=== PATIENT | male | born 1975 | race Caucasian/White ===

== ENCOUNTER 2016-09-15 17:41 | Emergency (ER) | payer BC, OTHER ==
[2016-09-15] MEDS ORDERED: MORPHINE SULFATE 4 MG/ML SYRINGE IVP STA (17:51)
--- NOTE | 2016-09-15 17:54 | ED ---
Lower Extremity Injury HPI - General Stated Complaint: [facility] fall Time Seen by Provider: 09/15/16 17:45 Source: patient, EMS, RN notes reviewed Mode of arrival: EMS Limitations: no limitations - History of Present Illness Initial Comments: 41-year-old male presents emergency department via EMS chief complaint slip and fall. Patient states that he is leaving work slipped on the asphalt on ice. Patient states that he has right ankle, right leg pain. Patient denies any head injury, LOC. Patient states she has no other areas that are sore. Patient states that he was unable to ambulate and states that he did hear a snap when he slipped. Patient states that he does not have a local orthopedic doctor that his [facility] Patient offers no other complaints this time. - Related Data Home Medications Medication Instructions Recorded Confirmed Aspirin EC [Ecotrin Low Dose] 81 mg PO DAILY 09/15/16 09/15/16 Cholecalciferol [Vitamin D3] 2,000 unit PO DAILY 09/15/16 09/15/16 Cyanocobalamin [Vitamin B-12] 500 mcg PO DAILY 09/15/16 09/15/16 Previous Rx's Medication Instructions Recorded HYDROcodone/APAP 7.5-325MG [[place] 1 tab PO Q6HR PRN #20 tab 09/15/16 7.5-325] Allergies Allergy/AdvReac Type Severity Reaction Status Date / Time No Known Allergies Allergy Verified 09/15/16 18:44 Review of Systems ROS Statement: Those systems with pertinent positive or pertinent negative responses have been documented in the HPI. ROS Other: All systems not noted in ROS Statement are negative. General Exam General appearance: alert, in no apparent distress Head exam: Present: atraumatic, normocephalic, normal inspection Neck exam: Present: normal inspection, full ROM. Absent: tenderness, meningismus, lymphadenopathy Respiratory exam: Present: normal lung sounds bilaterally. Absent: respiratory distress, wheezes, rales, rhonchi, stridor Cardiovascular Exam: Present: regular rate, normal rhythm, normal heart sounds. Absent: systolic murmur, diastolic murmur, rubs, gallop, clicks Extremities exam: Present: other (Right leg there is tenderness throughout the tib-fib region, there is moderate swelling and slight deformity noted to the right ankle pedal pulses equal bilaterally) Neurological exam: Present: alert, oriented X3, CN II-XII intact, reflexes normal. Absent: motor sensory deficit Skin exam: Present: warm, dry, intact, normal color. Absent: rash Course Vital Signs 09/15/16 17:44 Temperature 97.0 F L Pulse Rate 91 Respiratory 18 Rate Blood Pressure 149/60 O2 Sat by Pulse 96 Oximetry Procedures - Orthopedic Splinting/Casting Injury #1 Side: right Lower Extremity Injury Location: lower leg, ankle Lower Extremity Immobilizer: posterior splint (short leg posterior splint with sugartong neurvascular intact before and after short leg posterior splint with sugar tong splint) Disposition Clinical Impression: Fall, Right fibular fracture, Subluxation of ankle joint Disposition: HOME SELF-CARE Condition: Stable Instructions: Leg Fracture (ED) Additional Instructions: Return to the ER if symptoms worsen or any other concerns Prescriptions: HYDROcodone/APAP 7.5-325MG [[place] 7.5-325] 1 tab PO Q6HR PRN #20 tab PRN Reason: Pain Referrals: Teo Diallo MD [Primary Care Provider] - 1-2 days Woo Barahona MD [Medical Doctor] - 1-2 days Time of Disposition: 19:11
--- NOTE | 2016-09-15 18:39 | XR ---
EXAMINATION TYPE: XR tibia fibula RT DATE OF EXAM: 09/15/2016 6:24 PM COMPARISON: NONE HISTORY: Pain after fall TECHNIQUE: 2 views FINDINGS: There is a there is a 4 mm posteriorly-displaced oblique fracture through the fibula, locat ed 7.5 cm proximal to the mortise. IMPRESSION: Positive for fibular fracture.
--- NOTE | 2016-09-15 18:42 | XR ---
EXAMINATION TYPE: XR ankle complete RT DATE OF EXAM: 09/15/2016 6:24 PM COMPARISON: NONE HISTORY: Pain after fall TECHNIQUE: 3 views FINDINGS: There is a 5 mm posteriorly-displaced mildly complex fibular fracture with a butterfly frag ment. The fracture is located 7.5 cm proximal to the mortise. Also, the mortise appears to be subluxed laterally. IMPRESSION: POSITIVE FOR FIBULAR FRACTURE, AND EVIDENCE OF LATERAL MORTISE SUBLUXATION.
[2016-09-15] MEDS ORDERED: HYDROmorphone 1 MG/ML 1 ML SYRINGE IVP STA (18:51)
[2016-09-15 19:33] VITALS: BP 114/73; PULSE 83; RESP 18; TEMP 99.2
== END 2016-09-15 19:33 | disposition home or self-care (01) ==
LOC: EC 17:41
DX: S82.831A Other fracture of upper and lower end of right fibula, initial encounter for closed fracture (principal); W00.0XXA Fall on same level due to ice and snow, initial encounter; Y99.0 Civilian activity done for income or pay; Z79.82 Long term (current) use of aspirin
CPT/HCPCS: 99284; 29515; 73590; 73610; 96374; 96375; J2270; J1170

== ENCOUNTER 2016-09-26 10:52 | Day surgery (SDC) | payer BC ==
[2016-09-21 11:19] VITALS: BMI 33.0
[~2016-09-26 10:52] MED LIST: DEXAMETHASONE SOD PHOSPHATE 10 MG/ML 1 ML VIAL IV ONE; LIDOCAINE 1% 20 ML VIAL (10MG/ML) FOR IV START INTRADERMA PRN; MIDAZOLAM 2 MG/2 ML VIAL IV PRN; ONDANSETRON 4 MG/2 ML VIAL IVP ONE; SCOPOLAMINE 1.5MG/72HR PATCH TRANSDERM ONE; ceFAZolin 2 GM in SODIUM CHLORIDE 0.9% 100 ML IVPB ONE
[2016-09-26] MEDS: LACTATED RINGERS 1,000 ML IV SCH (11:29)
[2016-09-26] MEDS ORDERED: LIDOCAINE 1% 20 ML VIAL (10MG/ML) FOR IV START INTRADERMA ONE (11:30)
[2016-09-26] MEDS ORDERED: MIDAZOLAM 2 MG/2 ML VIAL IV ONE (12:20)
[2016-09-26] MEDS ORDERED: NEOSTIGMINE 1 MG/ML 10 ML VIAL ONE (12:46)
[2016-09-26] MEDS ORDERED: MIDAZOLAM 2 MG/2 ML VIAL ONE (12:46)
[2016-09-26] MEDS ORDERED: ROPIVACAINE 5 MG/ML 30 ML VIAL ONE (12:46)
[2016-09-26] MEDS ORDERED: PROPOFOL 10 MG/ML 20 ML VIAL IV ONE (12:46)
[2016-09-26] MEDS ORDERED: LIDOCAINE 1% INJ 10MG/ML (20 ML MDV) ONE (12:46)
[2016-09-26] MEDS ORDERED: LIDOCAINE 2%-EPI 1:100,000 20 ML VIAL ONE (12:46)
[2016-09-26] MEDS ORDERED: fentaNYL (PF) 50 MCG/ML 2 ML AMP ONE (12:46)
[2016-09-26] MEDS ORDERED: ROCURONIUM BROMIDE 10 MG/ML 10 ML VIAL IV ONE (12:46)
[2016-09-26] MEDS ORDERED: GLYCOPYRROLATE 0.2 MG/ML 2 ML VIAL ONE (12:46)
[2016-09-26] MEDS ORDERED: SUCCINYLCHOLINE CHLORIDE 100 MG/5 ML SYR IV ONE (12:46)
[2016-09-26] MEDS ORDERED: HYDROmorphone (PF) 1 MG/ML ONE (12:46)
[2016-09-26] MEDS ORDERED: LACTATED RINGERS 1,000 ML IV ONE ×2 (13:22)
[2016-09-26] MEDS ORDERED: ceFAZolin 1,000 MG in SODIUM CHLORIDE 0.9% 1,000 ML IRRIGATION ONE (13:23)
--- NOTE | 2016-09-26 15:11 | XR ---
EXAMINATION TYPE: XR ankle complete RT DATE OF EXAM: 09/26/2016 2:48 PM COMPARISON: NONE HISTORY: Status post open reduction internal fixation 28 seconds of fluoroscopy time was provided for procedure. Images are presented. IMPRESSION: 1. Fluoroscopy for procedure documentation.
--- NOTE | 2016-09-26 15:12 | FL ---
Fluoroscopy INDICATION: Pain FINDINGS: Fluoroscopy time: 29 seconds. Images obtained: 8. IMPRESSIONS: 1. Documentation of fluoroscopy.
[2016-09-26] MEDS ORDERED: diphenhydrAMINE 25 MG CAP PO PRN (15:23)
[2016-09-26] MEDS ORDERED: METOCLOPRAMIDE 5 MG/ML 2 ML VIAL IVP PRN (15:23)
[2016-09-26] MEDS ORDERED: SENNOSIDES-DOCUSATE SODIUM 1 EACH TAB PO PRN (15:23)
[2016-09-26] MEDS ORDERED: HYDROmorphone 1 MG/ML 1 ML SYRINGE IVP PRN (15:23)
[2016-09-26] MEDS ORDERED: HYDROcodone/APAP 10-325MG 1 EACH TAB PO PRN (15:26)
--- NOTE | 2016-09-26 15:43 | P.OP ---
Date of Procedure: 09/26/16 Preoperative Diagnosis: Closed right fibular fracture with syndesmotic disruption Postoperative Diagnosis: Closed right fibular fracture with syndesmotic disruption Procedure(s) Performed: 1. Open reduction internal fixation of right fibula fracture 2. Open reduction internal fixation of right ankle syndesmosis 3. Manual application of joint stress for radiography by physician Implants: 12 hole one third tubular plate, two 3.5 fully threaded syndesmotic screws, and 2.0 mm lag screw Anesthesia: REBEKAH Surgeon: Woo Barahona Occupational Therapy Manager #1: Halle Day Estimated Blood Loss (ml): 10 IV fluids (ml): 1,500 Pathology: none sent Condition: stable Disposition: PACU Indications for Procedure: The patient is a 41-year-old male who is a nonsmoker and is otherwise healthy and sustained a fall on some ice resulting in a closed right ankle fracture. He was seen in the ER and placed in a splint. He came into my office over a week ago at which point he was diagnosed with a displaced Jeffries C fibula fracture with a large butterfly fragment, syndesmotic disruption and medial clear space widening at the ankle joint. He underwent closed reduction the office and had a well-padded bulky Leo type splint placed. We discussed that he would need surgery for stabilization of his fracture and syndesmosis. We discussed potential risks and complications of surgery including but not limited to risk of anesthesia, risk of superficial or deep infection, risk of delayed wound healing, risk of damage to sensory nerves resulting in temporary or permanent numbness, risk of painful neuroma, risk of fracture nonunion, risk of fracture malunion, risk of intraoperative fracture, risk of postoperative fracture, risk of hardware failure, risk of displacement of fracture in the early postoperative. Requiring further surgery, risk of chronic pain, risk of chronic swelling, some to medical hardware, need for removal of syndesmotic screw, risk of decreased ability to ambulate, risk of inability to resume preinjury level of function, and possibly loss of limb or life. The patient understands these potential risks and complications and provided his verbal and written consent to go forward with surgery. Operative Findings: The patient had a displaced Jeffries C fibula fracture with a large posterior butterfly fragment Description of Procedure: Patient was notified prepped with holding the correct right leg was marked with my initials. I reviewed the consent form with the patient and all of his questions were answered. Prior to bringing the patient back to the operating room a popliteal block was placed by anesthesia. The patient was then brought back to the operating room and transferred from his gurney onto the operating room table where general anesthetic was administered. Preoperative antibiotics were given to his IV. Prior to positioning the patient on the operating room table C-arm was brought in to take a 2 mortise and true talar dome overlap lateral of his unaffected left ankle to use as a guide for reducing the syndesmosis. The patient's left leg was then secured to the table using egg foam and tape. The patient had a bone foam ramp placed under his right buttock. A well-padded tourniquet was applied to the proximal aspect of his right thigh. A ramp was placed under his right leg. The patient's right leg was then prepped and draped in the standard sterile fashion. Prior to starting surgery timeout was performed identifying the correct patient, operative procedure, and extremity. The patient's leg was then elevated, exsanguinated with an Esmarch bandage and the tourniquet was inflated to 250 mmHg. A longitudinal incision was then marked out over the lateral aspect of the distal fibula. Skin incision was made a 15 blade scalpel and I dissected carefully down through the subcutaneous tissue with tenotomy scissors. A branch of the superficial peroneal nerve was identified and carefully retracted. The fascia over the peroneal muscles was incised longitudinally in line with the skin incision. The fracture site was exposed. There is a displaced posterior butterfly fragment. The fracture site was gently cleaned of consolidating hematoma and early callus. Using a combination of longitudinal traction and rotation the fibula fracture was pulled out to length and I was able to assess our reduction with the anterior cortex of the distal and proximal fragments keying in. The butterfly fragment was then held reduced with a ecfzr-kq-yoqyx reduction clamp. A 12 hole one third tubular plate was then placed over the fibula and held in place. Just distal to the fracture a 3.5 screw was placed to hold the plate down to bone. I then placed three 3.5 mm cortical screws proximal to the fracture. C-arm was then brought in to assess reduction and placement of her hardware. The fibular fracture was out to length and the plate and screws were in appropriate position. A small stab incision was made medially. A large pelvic reduction clamp was placed a hold the syndesmosis reduced. C-arm was then brought in to take a mortise and lateral view. On the mortise view the fibula appeared to be out to length, the medial clear space was closed down, and the syndesmosis did not appear to be distracted or over compressed. On a true talar dome overlap lateral the right ankle appeared symmetric to the pre-operative lateral x-rays of the left ankle. Two fully threaded 3.5 linear lag screws were then placed. I then proceeded to place a final 3.5 mm screw in the most distal hole of the plate. The butterfly fragment was held reduced to the anterior cortex with a wiyzd-bu-cettr reduction clamp and a 2.0 mm lag screw was placed. A 2.0 drill bit was used to create a gliding hole and the anterior cortex and a 1.5 mm drill bit was used to create a threaded hole through the butterfly fragment. A fully threaded 2.0 mm screw was placed generating excellent compression across the butterfly fragment. After the uyetg-tc-ulhkl reduction clamps were removed the butterfly fragment remained well compressed and the anterior cortex. At this point final fluoroscopy shots were taken. Mortise and lateral x-rays showed the talus to be well reduced within the ankle mortise with no evidence of over compression of the syndesmosis or subluxation of the talus from underneath the plafond on the lateral view. On the mortise view the medial clear space was well reduced. Layo external rotation stress x-ray was then performed. There was no widening of the medial clear space or widening of the syndesmosis and I interpreted this as a stable syndesmosis with syndesmotic screws in place. The wound was then copiously irrigated with sterile saline. The superficial peroneal nerve was seen to be completely intact to the fascia over the peroneal muscles was closed with a running 0 Vicryl suture. The deep subcu was reapproximated using 2-0 Vicryl interrupted stitches area and the skin was closed using 3-0 nylon Anoop modification of the Donati stitches. The medial stab incision was closed with a single horizontal mattress stitch using 3 -0 nylon. The tourniquet was let down with a total tourniquet time of 110 minutes. All instrument sponge and sharp counts were correct. The skin was cleaned and Brown quartering stretchy Steri-Strips were placed between the stitches. A sterile dressing consisting of Betadine soaked Adaptic, 4 x 4, and web roll was applied. A very well-padded bulky Leo type splint was then placed. The patient was then awoken from his anesthetic, transferred from his operating room table to the [facility] and brought to PACU having to the procedure well. I was present and scrubbed for the entire procedure. Halle Day PA-C was needed for skilled respiratory therapist assistant to assist with positioning , exposure, retraction, reduction of the fracture, placement of hardware, and closure. Plan: We will clinically plan on keeping the patient overnight for pain control. If he is comfortable he can go home tonight. He is to remain strict nonweightbearing on his right leg. If he stays in the hospital he is to receive 2 doses of postoperative antibiotics. He'll follow-up in the office in 2 weeks for recheck.
--- NOTE | 2016-09-26 15:57 | P.ONQ ---
Anesthesiology Proc Note - PNB - Peripheral Nerve Block Performed Right Popliteal Single Time Out Performed: Yes Indication: Acute Post-Operative Pain, Requested by physician Sedation Type: Sedate with meaningful contact maintained Preparation: Sterile Prep Needle Size: 50mm (2") Needle Gauge: Other (see comment) (22g) Technique: Ultrasound Injectate: 0.5% Ropivacaine (see comment for volume) (20cc) Blood Aspirated: No Pain Paresthesia on Injection Noted: No Resistance on Injection: Normal Events: Uneventful and Well Tolerated
[2016-09-26] MEDS: HYDROmorphone 1 MG/ML 1 ML SYRINGE IVP PRN ×2 (16:00→17:34)
[2016-09-26 17:39] VITALS: RESP 16
[2016-09-26] MEDS: ceFAZolin 2 GM in SODIUM CHLORIDE 0.9% 100 ML IVPB SCH (18:23)
[2016-09-27] MEDS: ceFAZolin 2 GM in SODIUM CHLORIDE 0.9% 100 ML IVPB SCH (02:09)
[2016-09-27 07:37] VITALS: BP 123/57; PULSE 112; TEMP 99.2
[2016-09-27] MEDS: LACTATED RINGERS 1,000 ML IV SCH (08:17)
--- NOTE | 2016-09-27 09:45 | P.DS ---
Providers Expected date of discharge: 09/27/16 Attending physician: Woo Barahona Primary care physician: [facility] Course: To the OR yesterday, 09/26/2016 to undergo ORIF of right lateral malleolus fracture and syndesmosis fixation. He had displaced distal fibula/lateral malleolus fracture that required surgical fixation. He elected to proceed with surgical intervention after giving informed consent. He tolerated procedure well without complication. His postoperative hospital course has remained without complication. On day of discharge he desires discharge to home. On day of discharge he is afebrile, vital signs stable, wound benign, neurovascular status intact, splint and bandage intact with no evidence of active bleeding, tolerating by mouth meds and diet, denying the following: Calf pain, abdominal pain, numbness, tingling, new complaints. Review of systems is negative for fever, chills, chest pain, shortness of breath, nausea, vomiting, dizziness, headaches, slurred speech or other. Procedures: ORIF right ankle fracture Patient Condition at Discharge: Good Plan - Discharge Summary New Discharge Prescriptions: Aspirin 325 mg PO DAILY 14 Days Docusate [Colace] 100 mg PO BID #28 capsule HYDROcodone/APAP 10-325MG [[place] 10-325] 1 tab PO Q4HR PRN #60 tab PRN Reason: Pain Discharge Medication List Aspirin EC [Ecotrin Low Dose] 81 mg PO DAILY 09/15/16 [History] Cholecalciferol [Vitamin D3] 2,000 unit PO DAILY 09/15/16 [History] Cyanocobalamin [Vitamin B-12] 500 mcg PO DAILY 09/15/16 [History] HYDROcodone/APAP 7.5-325MG [[place] 7.5-325] 1 tab PO Q6HR PRN #20 tab 09/15/16 [ Rx] Aspirin 325 mg PO DAILY 14 Days 09/26/16 [Rx] Docusate [Colace] 100 mg PO BID #28 capsule 09/26/16 [Rx] HYDROcodone/APAP 10-325MG [[place] 10-325] 1 tab PO Q4HR PRN #60 tab 09/26/16 [Rx] Follow up Appointment(s)/Referral(s): Woo Barahona MD [Medical Doctor] - 2 Weeks Patient Instructions/Handouts: *Surgery [facility] - Scopalamine Patch Instructions Activity/Diet/Wound Care/Special Instructions: Please see printed instructions from Dr. Barahona's office Discharge Disposition: HOME SELF-CARE
== END 2016-09-27 11:00 | disposition home or self-care (01) ==
LOC: OR 10:52 → 5MS5E 15:16 → OR 09-27 11:00
PROVIDERS: ATTEND Orthopaedic Surgery
DX: S82.61XA Displaced fracture of lateral malleolus of right fibula, initial encounter for closed fracture (principal); S93.431A Sprain of tibiofibular ligament of right ankle, initial encounter; H91.90 Unspecified hearing loss, unspecified ear; W00.0XXA Fall on same level due to ice and snow, initial encounter; Z79.82 Long term (current) use of aspirin; Z79.891 Long term (current) use of opiate analgesic; Z87.891 Personal history of nicotine dependence
CPT/HCPCS: 73610; 27792; J2250; J1100; J0690 ×3; J2405; J1170

== ENCOUNTER → 2017-05-30 | Outpatient (CLI) | payer BC ==
--- NOTE | 2017-05-30 11:22 | US ---
EXAMINATION TYPE: US abdomen complete DATE OF EXAM: 05/30/2017 COMPARISON: US 2014 CLINICAL HISTORY: Abnormal Results Liver Study R94.5. Abnormal results of liver function test, occasi onal abdomen discomfort x many years EXAM MEASUREMENTS: Liver Length: 19.1 cm Gallbladder Wall: 0.3 cm CBD: 0.4 cm Spleen: 12.0 cm Right Kidney: 11.7 x 5.6 x 6.1 cm Left Kidney: 11.4 x 6.2 x 5.6 cm Pancreas: obscured by overlying midline bowel gas Liver: enlarged at 19.1cm, increased attenuation, difficult to penetrate, decreased visualization of vessels suggestive of fatty infiltrate Gallbladder: low level echoes seen within dependant portion Evidence for sonographic Driscoll's sign: no CBD: visualized portions wnl, limited by overlying bowel gas Spleen: visualized portions wnl, limited by rib shadowing and overlying bowel gas Right Kidney: visualized portions wnl, limited by rib shadowing and overlying bowel gas Left Kidney: visualized portions wnl, limited by rib shadowing and overlying bowel gas Upper IVC: limited by overlying bowel gas Abd Aorta: visualized portions wnl, proximal portion limited by overlying midline bowel gas IMPRESSION: 1. Very limited examination due to bowel gas. 2. No suspicious acute changes identified. 3. Hepatomegaly
== END | disposition home or self-care (01) ==
LOC: RADUSWWP 08:24
PROVIDERS: ATTEND Internal Medicine
DX: R16.0 Hepatomegaly, not elsewhere classified (principal)
CPT/HCPCS: 76700

== ENCOUNTER → 2017-07-12 | Outpatient (CLI) | payer BC ==
--- NOTE | 2017-07-12 17:52 | CONS ---
CONSULTATION DATE OF SERVICE: 07/12/2017 HISTORY: 41-year-old gentleman has been evaluated in the sleep center for possible obstructive sleep apnea-hypopnea syndrome. HISTORY OF PRESENT ILLNESS SLEEP WAKE EVALUATION: SLEEP SCHEDULE: Patient usual sleep schedule from 10:30 p.m. to 7 am on weekdays and from around 11:00 p.m. to 7 or 8:00 a.m. on weekends. FALLING ASLEEP: Sometimes he has a problem with falling asleep for more than 30 minute, but no more than 1 hour. No TV in bedroom. DURING SLEEP: Usually sleeps on the side position, does not like to sleep on the back. He wakes up from sleep 2 times with 1 episode of nocturia. He has he has episodes of awakenings from sleep with choking and grinding, about 2 years ago patient had a home sleep apnea test which was inconclusive. DURING THE DAY/SLEEP WAKE EVALUATION: [place] Sleepiness Scale today is 6. PAST MEDICAL HISTORY: Acid reflux. PAST SURGICAL HISTORY: Right fibula fracture 2017, tonsillectomy. MEDICATIONS: None at the present time. SOCIAL HISTORY: Positive history of smoking less than 1 pack a day for 5 years, quit about 15 years ago. Alcohol consumption rarely. FAMILY HISTORY: Hypertension, arthritis, snoring, cancer, diabetes. REVIEW OF SYSTEMS: Awakenings from sleep, sometimes tiredness and sleepiness during the day. Patient drinks two caffeinated beverages during the day. PHYSICAL EXAM: 41-year-old gentleman without distress BP 128/80, HR 88, RR 16, height 5 feet 10 inches, weight 237.2, BMI 33.5. Neck is 17 inches in circumference. Temp 98.1 oxygen saturation room air 97%. Oropharynx extremely low position of soft palate. Restriction of nasal breathing. Neck Supple, no JVD. Thyroid is not palpable. LUNGS Clear to percussion and to auscultation. Good air exchange. No wheezing or rhonchi. HEART S1, S2 regular. No murmurs, gallops, or rubs. ABDOMEN: Obese. Soft and nontender. Bowel sounds are present. No organomegaly appreciated. EXTREMITIES No clubbing or cyanosis. SUBSTATION INSPECTOR Awake, alert, and oriented X3. Cranial nerves 2 to 7 intact. There is no fasciculation or atrophy. noted. No focal deficits observed. IMPRESSION: 1. Snoring, awakenings with choking, extremely low position of soft palate, restriction of nasal breathing, wide neck, obstructive sleep apnea-hypopnea syndrome. 2. Obesity BMI 33.5. 3. Restriction of nasal breathing. 4. Status post right fibula fracture and surgical treatment in 2017. 5. Status post tonsillectomy. PLAN: 1. Polysomnography for evaluation of patient's breathing during sleep. The patient already had a home sleep apnea test about 2 years ago, which was not conclusive. 2. CPAP/BiPAP titration if sleep study confirms obstructive sleep apnea-hypopnea syndrome. 3. Preferable position during sleep on the side. 4. No driving if patient feels any sleepiness. Patient is aware of civil and criminal liability for unsafe driving. 5. I will see patient for follow up visit to explain results of testing and following plan. Thank you very much for referring this patient for consultation. Sincerely, Aristides Kenney MD, PhD, FAASM Diplomat of [place] [employer] [place] [employer] Prepleater of [facility] [place] MMODL / LEEROYN: [id number] /
== END ==
LOC: SLEEP 14:40
PROVIDERS: ATTEND Internal Medicine
DX: G47.33 Obstructive sleep apnea (adult) (pediatric) (principal); E66.9 Obesity, unspecified; Z68.33 Body mass index [BMI] 33.0-33.9, adult; Z98.890 Other specified postprocedural states; Z87.891 Personal history of nicotine dependence
CPT/HCPCS: 99211

== ENCOUNTER → 2017-07-31 | Outpatient (CLI) | payer BC ==
[2017-07-31 16:52] LABS: Basophils % (A) 1 %; CH 31.1; CHCM 33.2; Eosinophils # (A) 0.1 k/uL (0-0.7); Eosinophils % (A) 1 %; HCT 49.1 % (39.0-53.0); HDW 2.42; HGB 15.8 gm/dL (13.0-17.5); Luc # (Auto) 0.12; Luc % (Auto) 2; Lymphocytes # (A) 2.1 k/uL (1.0-4.8); Lymphocytes % (A) 30 %; MCH 30.3 pg (25.0-35.0); MCHC 32.2 g/dL (31.0-37.0); MCV 94.1 fL (80.0-100.0); Mean Platelet Volume 7.4; Monocytes # (A) 0.6 k/uL (0-1.0); Monocytes % (A) 9 %; Neutrophils # (A) 4.1 k/uL (1.3-7.7); Neutrophils % (A) 58 %; RBC 5.22 m/uL (4.30-5.90); RDW 13.1 % (11.5-15.5); WBC (Perox) 7.22
[2017-07-31 17:06] LABS: ALT 103 U/L (21-72); AST 37 U/L (17-59); Alkaline Phosphatase 71 U/L (38-126); Anion Gap 9 mmol/L; Blood Urea Nitrogen 15 mg/dL (9-20); Carbon Dioxide 28 mmol/L (22-30); Chloride 104 mmol/L (98-107); Glucose 89 mg/dL (74-99); Non-African American GFR(MDRD) >60 (>60 ml/min/1.73 sqM); Potassium 4.2 mmol/L (3.5-5.1); Sodium 141 mmol/L (137-145); Total Bilirubin 0.4 mg/dL (0.2-1.3); Total Protein 8.3 g/dL (6.3-8.2)
[2017-08-01 00:48] LABS: Iron Saturation 18.18 (15.00-50.00); Iron(FE) 62 ug/dL (65-175); Total Iron Binding Capacity 341 ug/dL (228-460)
[2017-08-01 01:09] LABS: ANA w/Reflex to Titer NEGATIVE (NEGATIVE)
== END | disposition home or self-care (01) ==
LOC: LABWHC1 16:18
PROVIDERS: ATTEND Internal Medicine Gastroenterology
DX: K76.0 Fatty (change of) liver, not elsewhere classified (principal); R79.89 Other specified abnormal findings of blood chemistry
CPT/HCPCS: 36415; 80053; 82103; 82390; 82728; 83516; 83540; 83550; 84165; 85025; 86038; 86803; 87340

== ENCOUNTER → 2017-10-26 | Outpatient (CLI) | payer BC ==
--- NOTE | 2017-10-26 17:26 | PN ---
PROGRESS NOTE DATE OF SERVICE: 10/26/2017 82-year-old gentleman has been followed in Sleep Center to discuss results of the sleep study and following plan. Recently patient had a polysomnogram and I discussed results of sleep study with patient in details. No significant respiratory abnormalities have been documented during the sleep study. Apnea-hypopnea index is only 0.7. His lowest oxygen level 89.6%. Sleep efficiency was in normal range. Four periods of REM documented. No significant periodic limb movements have been documented. Presently, the patient continued to feel tired and sleepy during the day. [place] Sleepiness Scale is 17. He is under evaluation for changing of his hormonal status related to testosterone. MEDICATIONS: None at the present time. PHYSICAL EXAM: Patient in no distress. BP 132/82, HR 96, RR 16, height 5 feet 10 inches, weight 241, BMI 34.5, temp 97.7, oxygen saturation on room air 97%. Oropharynx moderately low position of soft palate but normal distance between soft palate and posterior pharyngeal wall. Neck Supple, no JVD. Thyroid is not palpable. LUNGS Clear to percussion and to auscultation. Good air exchange. No wheezing or rhonchi. HEART S1, S2 regular. No murmurs, gallops, or rubs. ABDOMEN Soft and nontender. Bowel sounds are present. No organomegaly appreciated. EXTREMITIES No clubbing or cyanosis. FINAL INSTALLER INSPECTOR Awake, alert, and oriented X3. Cranial nerves 2 to 7 intact. There is no fasciculation or atrophy. noted. No focal deficits observed. IMPRESSION: 1. No significant respiratory abnormalities have been documented during the sleep study. Mild snoring documented. 2. Presently patient continued to have symptoms of excessive daytime sleepiness. [place] Sleepiness Scale increased to 17. 3. No history of hypnagogic hallucinations, but positive history of sleep of paralysis. No cataplexy. 4. No periodic limb movements have been documented. 5. Mild obesity. 6. Status post tonsillectomy. 7. Some restriction of nasal breathing. 8. Status post right fibular fracture and surgical repair in 2017. PLAN: 1. Sleep hygiene with regular time in bed for at least 8 hours. 2. Preferable position during the sleep on the side and that is what patient is doing at the present time. 3. If the patient will continue to have symptoms of excessive daytime sleepiness, we will proceed with multiple sleep latency test for objective evaluation of symptoms of sleepiness and possibly treatment with daytime stimulants after that. 4. No driving if feeling sleepiness. Thank you very much for allowing me to participate in the management of your patient. Aristides Kenney MD, PhD, FAASM Diplomat of [place] [employer] [place] [employer] Interviewing Clerk of [facility] [place] MMODL / LEEROYN: [id number] /
== END | disposition home or self-care (01) ==
LOC: SLEEP 14:45
PROVIDERS: ATTEND Internal Medicine
DX: G47.10 Hypersomnia, unspecified (principal); R06.83 Snoring; E66.9 Obesity, unspecified; R06.9 Unspecified abnormalities of breathing; S82.401D Unspecified fracture of shaft of right fibula, subsequent encounter for closed fracture with routine healing; Z98.890 Other specified postprocedural states; Z90.89 Acquired absence of other organs; Z68.34 Body mass index [BMI] 34.0-34.9, adult; Z86.69 Personal history of other diseases of the nervous system and sense organs

== ENCOUNTER → 2020-06-12 | Outpatient (CLI) | payer BC | END | disposition home or self-care (01) | LOC: LABWHC1 08:45 | PROVIDERS: ATTEND Internal Medicine | DX: R50.9 Fever, unspecified (principal); Z20.828 Contact with and (suspected) exposure to other viral communicable diseases ==

== ENCOUNTER → 2021-06-09 | Outpatient (CLI) | payer BC ==
--- NOTE | 2021-06-09 12:03 | P.STRESS ---
- Stress Test Note Stress Test Results/Findings: Exam Performed: stress test Exam Date: 06/09/21 Reason for Exam: ABNORMAL EKG Height: 5 ft 10 in Weight: 102.3 kg Protocol: ELIER Stage: 4 Duration of Exercise: 10:41 Resting Heart Rate: 80 Resting Blood Pressure: 123/88 Maximum Achieved Heart Rate: 157 Maximum Achieved Blood Pressure: 184/84 85% PMHR: 149 100% PMHR: 175 METS: 12.1 Technologist Comment: Stress Test Results/Findings: This is a 45-year-old gentleman with history of hypercholesterolemia and smoking being evaluated for cardiac status. Stress data: Baseline EKG showed sinus rhythm with normal TN interval and QRS duration. Blood pressure at rest is 123/88 with pulse rate of 80. Patient walked on the Elier protocol for 10 minutes and 41 seconds achieving a maximum heart rate of 164 with a blood pressure 180/84. EKGs taken during and after exercise did not reveal any significant changes from the baseline. Patient did not experience any chest pain. Final impression: #1. Negative stress test #2. Patient did not experience any chest pain. #3. No arrhythmias noted. #4. Exercise capacity is excellent.
--- NOTE | 2021-06-09 15:21 | EST ---
Stress Test Results/Findings: Exam Performed: stress test Exam Date: 06/09/21 Reason for Exam: ABNORMAL EKG Height: 5 ft 10 in Weight: 102.3 kg Protocol: ELIER Stage: 4 Duration of Exercise: 10:41 Resting Heart Rate: 80 Resting Blood Pressure: 123/88 Maximum Achieved Heart Rate: 157 Maximum Achieved Blood Pressure: 184/84 85% PMHR: 149 100% PMHR: 175 METS: 12.1 Technologist Comment: Stress Test Results/Findings: This is a 45-year-old gentleman with history of hypercholesterolemia and smoking being evaluated for cardiac status. Stress data: Baseline EKG showed sinus rhythm with normal OK interval and QRS duration. Blood pressure at rest is 123/88 with pulse rate of 80. Patient walked on the Elier protocol for 10 minutes and 41 seconds achieving a maximum heart rate of 164 with a blood pressure 180/84. EKGs taken during and after exercise did not reveal any significant changes from the baseline. Patient did not experience any chest pain. Final impression: #1. Negative stress test #2. Patient did not experience any chest pain. #3. No arrhythmias noted. #4. Exercise capacity is excellent. MTDD
== END | disposition home or self-care (01) ==
LOC: RADNMMAIN 08:38
PROVIDERS: ATTEND Internal Medicine
DX: R94.31 Abnormal electrocardiogram [ECG] [EKG] (principal); E78.00 Pure hypercholesterolemia, unspecified; F17.200 Nicotine dependence, unspecified, uncomplicated
CPT/HCPCS: 93017

== ENCOUNTER 2024-09-16 09:04 | Day surgery (SDC) | payer BC ==
[~2024-09-16 09:04] MED LIST changes: -DEXAMETHASONE SOD PHOSPHATE 10 MG/ML 1 ML VIAL IV ONE; +LACTATED RINGERS 1,000 ML IV SCH; +LIDOCAINE 1% (10MG/ML) FOR IV START INTRADERMA PRN; -LIDOCAINE 1% 20 ML VIAL (10MG/ML) FOR IV START INTRADERMA PRN; -MIDAZOLAM 2 MG/2 ML VIAL IV PRN; -ONDANSETRON 4 MG/2 ML VIAL IVP ONE; -SCOPOLAMINE 1.5MG/72HR PATCH TRANSDERM ONE; -ceFAZolin 2 GM in SODIUM CHLORIDE 0.9% 100 ML IVPB ONE
[2024-09-16] MEDS: IV FLUID CONTINUATION 1,000 ML IV ONE (09:10)
[2024-09-16 09:26] VITALS: TEMP 97.4
[2024-09-16] MEDS ORDERED: PROPOFOL 10 MG/ML 20 ML VIAL IV ONE (09:31)
[2024-09-16 10:10] VITALS: BP 127/83; PULSE 89; RESP 16
--- NOTE | 2024-09-16 12:39 | P.OP ---
Date of Procedure: 09/16/24 Preoperative Diagnosis: Screening Colonoscopy Postoperative Diagnosis: Suboptimal Prep Anesthesia: MAC Surgeon: Oswald Randolph Pathology: none sent Condition: stable Disposition: PACU Description of Procedure: After informed consent was obtained, the patient was placed in the left lateral position and sedated. Monitoring was provided throughout the entire procedure. Digital rectal exam was performed revealing normal sphincter tone and no external hemorrhoids. The colonoscope was inserted into rectum and advanced under direct visualization, without difficulty, to the cecum, where the cecal strap, appendiceal orifice, and the ileocecal valve were identified. The quality of the preparation was poor. The colonoscope was then withdrawn while carefully examining the mucosa. The colonic mucosa appeared normal with normal vascularity and haustral markings. No masses, polyps, AVM/s or diverticula were seen. The endoscope was removed and the procedure terminated. The patient tolerated the procedure well without complications. The patient will need a repeat colonoscopy in 6 months because of poor prep.
== END 2024-09-16 11:05 | disposition home or self-care (01) ==
LOC: ORWHC2ENDO 09:04
PROVIDERS: ATTEND Surgery
DX: Z12.11 Encounter for screening for malignant neoplasm of colon (principal); E78.2 Mixed hyperlipidemia; K76.0 Fatty (change of) liver, not elsewhere classified; G47.33 Obstructive sleep apnea (adult) (pediatric); G47.11 Idiopathic hypersomnia with long sleep time; N40.0 Benign prostatic hyperplasia without lower urinary tract symptoms; R30.0 Dysuria; R00.1 Bradycardia, unspecified; L72.3 Sebaceous cyst; Z98.890 Other specified postprocedural states; Z68.36 Body mass index [BMI] 36.0-36.9, adult; Z79.899 Other long term (current) drug therapy
CPT/HCPCS: 45378; J2704

== ENCOUNTER 2024-09-23 11:07 | Day surgery (SDC) | payer BC ==
[~2024-09-23 11:07] MED LIST changes: +HYDROmorphone 0.5 MG/0.5 ML SYRINGE IVP PRN; -LACTATED RINGERS 1,000 ML IV SCH; +MIDAZOLAM 2 MG/2 ML VIAL IV PRN; +fentaNYL (PF) 50 MCG/ML 2 ML AMP IVP PRN
[2024-09-23] MEDS: IV FLUID CONTINUATION 1,000 ML IV ONE (11:28)
[2024-09-23 11:35] VITALS: RESP 16; TEMP 98
[2024-09-23] MEDS: DEXAMETHASONE SOD PHOSPHATE 4 MG/ML 1 ML VIAL IV ONE (11:43)
[2024-09-23] MEDS: LACTATED RINGERS 1,000 ML IV SCH (11:43)
[2024-09-23] MEDS: ONDANSETRON 4 MG/2 ML VIAL IVP ONE (11:43)
[2024-09-23] MEDS ORDERED: PROPOFOL 10 MG/ML 20 ML VIAL IV ONE (12:30)
[2024-09-23] MEDS ORDERED: fentaNYL (PF) 50 MCG/ML 2 ML AMP ONE (12:30)
[2024-09-23] MEDS ORDERED: MIDAZOLAM 2 MG/2 ML VIAL ONE (12:30)
[2024-09-23] MEDS: LIDOCAINE 1%-EPI 1:100,000 20 ML VIAL SQ ONE ×2 (12:47)
--- NOTE | 2024-09-23 13:14 | P.OP ---
Date of Procedure: 09/23/24 Preoperative Diagnosis: Epidermal inclusion cyst, back Postoperative Diagnosis: Epidermal inclusion cyst, back, measuring 2 x 2 cm Procedure(s) Performed: Excision epidermal inclusion cyst of back Anesthesia: MAC Surgeon: Yulisa Márquez Pathology: other (Epidermal inclusion cyst) Condition: stable Disposition: same day Indications for Procedure: 49-year-old male presents with recurrent infections of a sebaceous cyst of the back. Plan is for excision of this capsule. Risks, benefits and alternatives were provided to the patient. All questions answered. Operative Findings: 2 x 2 cm epidermal inclusion cyst Description of Procedure: Patient is brought to the operative suite and placed in supine position on the operating table. Sedation was provided by anesthesia and patient was placed in left lateral decubitus position. Patient was prepped and draped in regular sterile fashion. Local anesthetic was administered. Elliptical incision was made over the sebaceous cyst site and dissection was carried towards the subcutaneous tissue. Capsule was removed in its entirety. Hemostasis was noted to be maintained. Wound was irrigated. Wound was then closed with 2-0 nylon suture in mattress format. Sterile dressing was applied. The patient was awakened in the operative suite taken to postanesthesia care in stable condition.
[2024-09-23 13:35] VITALS: BP 126/81; PULSE 97
== END 2024-09-23 14:09 | disposition home or self-care (01) ==
LOC: OR 11:07
PROVIDERS: ATTEND Surgery
DX: L72.0 Epidermal cyst (principal); L72.3 Sebaceous cyst; E78.5 Hyperlipidemia, unspecified; N40.0 Benign prostatic hyperplasia without lower urinary tract symptoms; G47.12 Idiopathic hypersomnia without long sleep time; Z79.02 Long term (current) use of antithrombotics/antiplatelets; Z79.899 Other long term (current) drug therapy
CPT/HCPCS: 88304; 11402; J2250; J1100; J0690; J2405; J3010; J2704

== ENCOUNTER → 2024-11-08 | Outpatient (CLI) | payer BC ==
--- NOTE | 2024-11-08 17:15 | CT ---
EXAMINATION TYPE: CT abdomen pelvis wo/w con DATE OF EXAM: 11/08/2024 4:41 PM COMPARISON: None. CLINICAL INDICATION: Male, 49 years old with history of K42.9 UMBILICAL HERNIA WITHOUT OBSTRUCTION OR GANG, States that he had an abdominal cyst removed x 2 months ago, recent hernia found TECHNIQUE:CT scan of the abdomen and pelvis is performed with Oral Contrast and without and with IV C ontrast, patient injected with 100 mL of Isovue 300. CT DLP: 2700 mGycm, Automated exposure control for dose reduction was used. FINDINGS: LUNG BASES-: No visible nodule. No infiltrate. LIVER/GB: No calcified gallstones. There is hepatic steatosis with hepatomegaly. Small nonspecific hypoattenuating lesion measuring 1.3 cm medial segment left hepatic lobe. Consider ultrasound correla tion. Biliary tree is of normal caliber. PANCREAS: No inflammation. No distinct mass. SPLEEN: No splenic enlargement. No lesion seen. ADRENALS: No nodule. No thickening. KIDNEYS/BLADDER: No hydronephrosis. Nonobstructing calculus lower pole right kidney measures 5.8 mm additional smaller 2 mm calculi is seen. Additional nonobstructing calculus measuring 6.2 mm at the l ower pole left kidney. No distinct renal mass. Urinary bladder grossly unremarkable. BOWEL: Normal appendix. Normal bowel caliber. No inflammation. Sigmoid diverticulosis without diver ticulitis. GENITAL ORGANS: No gross abnormality. LYMPH NODES: No greater than 1cm abdominal or pelvic lymph nodes are appreciated. AORTA: No significant abnormality. OSSEOUS STRUCTURES: No significant abnormality is seen. OTHER: Fat-containing umbilical hernia measures 4.1 cm x 2.5 cm. IMPRESSION: 1. Fat-containing umbilical hernia measures 4.1 cm x 2.5 cm. 2. Hepatomegaly with underlying hepatic steatosis. 3.Small nonspecific hypoattenuating lesion measuring 1.3 cm medial segment left hepatic lobe. Conside r ultrasound correlation. 4. nonobstructing nephrolithiasis. [facility], , 11/08/2024 5:13 PM
== END | disposition home or self-care (01) ==
LOC: RADCTMAIN 14:09
PROVIDERS: ATTEND Internal Medicine
DX: K42.9 Umbilical hernia without obstruction or gangrene (principal); R10.30 Lower abdominal pain, unspecified; K76.0 Fatty (change of) liver, not elsewhere classified; R16.0 Hepatomegaly, not elsewhere classified; N20.0 Calculus of kidney; K76.89 Other specified diseases of liver
CPT/HCPCS: 74178; Q9967

== ENCOUNTER → 2024-11-14 | Outpatient (CLI) | payer BC ==
--- NOTE | 2024-11-14 09:38 | US ---
EXAMINATION TYPE: US liver DATE OF EXAM: 11/14/2024 COMPARISON: NONE CLINICAL INDICATION: Male, 49 years old with history of K76.9 LIVER LESION; Left Medial Liver lesion seen on CT, patient denies any other signs, symptoms, or relevant history TECHNIQUE: Grayscale and color Doppler imaging of the right upper quadrant was performed. FINDINGS: EXAM MEASUREMENTS: Liver Length: 16.9 cm Gallbladder Wall: 0.3 cm CBD: 0.4 cm Right Kidney: 12.7 x 5.5 x 6.1 cm BUSINESS DEAN NOTES:Difficult exam due to patient body habitus and liver attenuation Pancreas: Tail obscured by overlying bowel gas Liver: Increased attenuation, decreased visualization of vessels suggestive of fatty infiltrate. Are a of concern not clearly seen on ultrasound Gallbladder: wnl Evidence for sonographic Driscoll's sign: No CBD: Limited visualization Right Kidney: Limited visualization IMPRESSION: 1. No evidence for acute process. 2. Area within the liver was actually in the segment 8 of the right hepatic lobe which had Hounsfiel d units of simple fluid and likely represent a cyst on prior CT. Area of concern not definitively vis ualized on ultrasound imaging. [facility], , 11/14/2024 9:36 AM
== END | disposition home or self-care (01) ==
LOC: RADUSWWP 08:29
PROVIDERS: ATTEND Internal Medicine
DX: K76.9 Liver disease, unspecified (principal)
CPT/HCPCS: 76705

== ENCOUNTER → 2024-11-21 | Outpatient (CLI) | payer BC ==
--- NOTE | 2024-11-21 14:28 | US ---
EXAMINATION TYPE: US kidneys/renal and bladder DATE OF EXAM: 11/21/2024 COMPARISON: 11/08/2024 CLINICAL INDICATION: Male, 49 years old with history of N20.0 CALCULUS OF KIDNEY; CT showed renal sto ne, patient is not symptomatic TECHNIQUE: Grayscale imaging of the bilateral kidneys and urinary bladder: FINDINGS: EXAM MEASUREMENTS: Right Kidney: 11.3 x 5.3 x 5.3 cm Left Kidney: 11.0 x 5.2 x 6.2 cm Right Kidney: multiple echogenic foci, unable to specify which area was a calc seen on CT Left Kidney: 1.2cm probable shadowing stone seen, does correlate with CT Bladder: mobile debris seen within distended bladder There is no evidence for hydronephrosis at this point in time. No nephrolithiasis is seen. No jeannie s are identified. The urinary bladder conscious floating debris. IMPRESSION: 1. Debris within the urinary bladder correlate with urinalysis for cystitis. 2. Bilateral renal calculi better appreciated on CT. [facility], , 11/21/2024 2:26 PM
== END | disposition home or self-care (01) ==
LOC: RADUSWWP 13:23
PROVIDERS: ATTEND Internal Medicine
DX: N20.0 Calculus of kidney (principal); N32.89 Other specified disorders of bladder
CPT/HCPCS: 76770